=== PATIENT | female | born 1955 | race Caucasian/White ===

== ENCOUNTER 2018-09-26 14:40 | Observation (INO) | payer MEDICARE, MEDICAID ==
--- NOTE | 2018-09-26 15:10 | ER Document Report ---
ED Medical Screen (RME) - General Chief Complaint: Leg Weakness Stated Complaint: FALL/RIGHT LEG WEAKNESS Time Seen by Provider: 09/26/18 14:56 Primary Care Provider: YONI BRITO [Primary Care Provider] - Follow up as needed TRAVEL OUTSIDE OF THE [place] IN LAST 30 DAYS: No - HPI Notes: 09/26/18 15:06 63-year-old female with a past medical history of diabetes type 2, hypertension, right-sided CVA, gastroparesis, hypercholesteremia, gastroparesis on anticoagulant therapy presents to the ED for evaluation of a syncopal event that happened at 11 AM this morning, patient states she felt like her right leg could not hold her up, she started to fall down to the cabinet in which she then became very dizzy and then passed out states she woke up later to her dogs licking her face. Patient reports she is having right arm numbness and tingling that started this morning. Denies any prior history of syncopal events. Patient states this morning when she checked her blood sugar it was 142. She is established with [facility]. Came by private car. ROS: Other than noted above, the 12 point review of systems was reviewed with the patient and were negative, all pertinent findings are included in the HPI. PHYSICAL EXAMINATION: Vital signs reviewed. GENERAL: Well-appearing, well-nourished and in no acute distress. HEAD: Atraumatic, normocephalic. NECK: Normal range of motion CV: Heart regular rate and rhythm LUNGS: No respiratory distress ABD: generalized abd pain Musculoskeletal: Normal range of motion. NEUROLOGICAL: Normal speech. Oriented x3. dysmetria to right upper extremity, right upper extremity drift, face symmetrical, tongue midline. Strength 4 out of 5 in right upper extremity, strength 5 out of 5 in left upper extremity. GCS 15 PSYCH: Normal mood, normal affect. MDM: Patient seen and examined for rapid initial assessment. Vital signs reviewed. A comprehensive ED assessment and evaluation of the patient, analysis of test results and completion of the medical decision making process will be conducted by additional ED providers. *Note is created using voice recognition software and may contain spelling, syntax or grammatical errors. - Related Data Allergies/Adverse Reactions: morphine Allergy (Verified 09/26/18 14:43) Physical Exam - Vital signs Vitals: Temp Pulse Resp BP Pulse Ox 97.7 F 99 14 119/57 L 97 09/26/18 14:45 09/26/18 14:45 09/26/18 14:45 09/26/18 14:45 09/26/18 14:45 Course - Vital Signs Vital signs: Temp Pulse Resp BP Pulse Ox 97.7 F 99 14 119/57 L 97 09/26/18 14:45 09/26/18 14:45 09/26/18 14:45 09/26/18 14:45 09/26/18 14:45 Doctor's Discharge - Discharge Referrals: LOCALMD,NO [Primary Care Provider] - Follow up as needed
--- NOTE | 2018-09-26 15:52 | RADIOLOGY REPORT (SQ) ---
EXAM DESCRIPTION: CT HEAD WITHOUT COMPLETED DATE/TIME: 09/26/2018 3:42 pm REASON FOR STUDY: syncopal event, numbness to R arm, hx cva COMPARISON: None. TECHNIQUE: Axial images acquired through the brain without intravenous contrast. Images reviewed wi th bone, brain and subdural windows. Additional sagittal and coronal reconstructions were generated. Images stored on PACS. All CT scanners at this facility use dose modulation, iterative reconstruction, and/or weight based d osing when appropriate to reduce radiation dose to as low as reasonably achievable (ALARA). [facility]: Dose Right [facility]: CareDose [facility]: Dose Right [facility]: Teradose 4D [facility]: Smart [facility] RADIATION DOSE: CT Rad equipment meets quality standard of care and radiation dose reduction techniq ues were employed. CTDIvol: 53.2 mGy. DLP: 1097 mGy-cm. mGy. LIMITATIONS: None. FINDINGS: VENTRICLES: Normal size and contour. CEREBRUM: No masses. No hemorrhage. No midline shift. No evidence for acute infarction. Normal gra y/white matter differentiation. No areas of low density in the white matter. CEREBELLUM: No masses. No hemorrhage. No alteration of density. No evidence for acute infarction. EXTRAAXIAL SPACES: No fluid collections. No masses. ORBITS AND GLOBE: No intra- or extraconal masses. Normal contour of globe without masses. CALVARIUM: No fracture. PARANASAL SINUSES: No fluid or mucosal thickening. SOFT TISSUES: No mass or hematoma. OTHER: No other significant finding. IMPRESSION: No acute intracranial pathology. EVIDENCE OF ACUTE STROKE: NO. COMMENT: Quality ID # [id number]: Final reports with documentation of one or more dose reduction techniques (e.g., Automated exposure control, adjustment of the mA and/or kV according to patient size, use of iterative reconstruction technique) TECHNICAL DOCUMENTATION: JOB ID: [id number] [facility]- All Rights Reserved Reading location - IP/workstation name: [email or web address]
--- NOTE | 2018-09-26 16:03 | RADIOLOGY REPORT (SQ) ---
EXAM DESCRIPTION: CHEST SINGLE VIEW COMPLETED DATE/TIME: 09/26/2018 3:52 pm REASON FOR STUDY: syncopal event COMPARISON: None. EXAM PARAMETERS: NUMBER OF VIEWS: One view. TECHNIQUE: Single frontal radiographic view of the chest acquired. RADIATION DOSE: NA LIMITATIONS: None. FINDINGS: LUNGS AND PLEURA: No opacities, masses or pneumothorax. No pleural effusion. MEDIASTINUM AND HILAR STRUCTURES: No masses. Contour normal. HEART AND VASCULAR STRUCTURES: Heart normal in size. Normal vasculature. BONES: No acute findings. HARDWARE: None in the chest. OTHER: No other significant finding. IMPRESSION: NO ACUTE RADIOGRAPHIC FINDING IN THE CHEST. TECHNICAL DOCUMENTATION: JOB ID: [id number] [employer]- All Rights Reserved Reading location - IP/workstation name: [email or web address]
[2018-09-26 17:08] LABS: ABSOLUTE BASOPHILS # (AUTO) 0.1 10^3/uL (0.0-0.2); ABSOLUTE EOSINOPHILS # (AUTO) 0.2 10^3/uL (0.0-0.6); ABSOLUTE LYMPHOCYTES (AUTO) 2.4 10^3/uL (0.5-4.7); ABSOLUTE MONOCYTES (AUTO) 0.5 10^3/uL (0.1-1.4); ABSOLUTE NEUT (AUTO) 7.7 10^3/uL (1.7-8.2); BASOPHILS % (AUTO) 0.8 % (0-2); EOSINOPHILS % (AUTO) 1.4 % (0-6); HEMATOCRIT 38.1 % (36.0-47.0); HEMOGLOBIN 12.7 g/dL (12.0-15.5); LYMPHOCYTES % (AUTO) 22.1 % (13-45); MEAN CORPUSCULAR HEMOGLOBIN 27.6 pg (27.0-33.4); MEAN CORPUSCULAR HGB CONC 33.4 g/dL (32.0-36.0); MEAN CORPUSCULAR VOLUME 82 fl (80-97); MONOCYTES % (AUTO) 4.9 % (3-13); PLATELET COUNT 280 10^3/uL (150-450); RED BLOOD COUNT 4.62 10^6/uL (3.72-5.28); RED CELL DISTRIBUTION WIDTH 13.5 % (11.5-14.0); SEGMENTED NEUTROPHILS % (AUTO) 70.8 % (42-78); TOTAL CELLS COUNTED % (AUTO) 100 %; WHITE BLOOD COUNT 10.9 10^3/uL (4.0-10.5)
[2018-09-26 17:27] LABS: ALANINE AMINOTRANSFERASE 22 U/L (9-52); ALKALINE PHOSPHATASE 130 U/L (38-126); ANION GAP 10 (5-19); ASPARTATE AMINO TRANSFERASE 25 U/L (14-36); BILIRUBIN,DIRECT 0.2 mg/dL (0.0-0.4); BILIRUBIN,TOTAL 0.4 mg/dL (0.2-1.3); BLOOD UREA NITROGEN 28 mg/dL (7-20); CALCIUM 9.2 mg/dL (8.4-10.2); CARBON DIOXIDE 30 mmol/L (22-30); CHLORIDE 99 mmol/L (98-107); CREATINE KINASE 81 U/L (30-135); GLUCOSE 205 mg/dL (75-110); POTASSIUM 5.2 mmol/L (3.6-5.0); TOTAL PROTEIN 6.4 g/dL (6.3-8.2)
[2018-09-26 17:35] LABS: APPEARANCE,URINE CLEAR; BILIRUBIN,URINE NEGATIVE (NEGATIVE); COLOR,URINE YELLOW; GLUCOSE, URINE NEGATIVE (NEGATIVE); KETONES,URINE NEGATIVE (NEGATIVE); LEUKOCYTE ESTERASE,URINE NEGATIVE (NEGATIVE); NITRITE,URINE NEGATIVE (NEGATIVE); PROTEIN,URINE NEGATIVE (NEGATIVE); URINE SPECIFIC GRAVITY 1.006; UROBILINOGEN,URINE NEGATIVE mg/dL (<2.0)
[2018-09-26 17:39] LABS: TROPONIN I < 0.012 ng/mL
--- NOTE | 2018-09-26 18:20 | EKG REPORT ---
SEVERITY:- BORDERLINE ECG - SINUS RHYTHM LOW VOLTAGE THROUGHOUT : Confirmed by: Nicole Meredith MD 26-Sep-2018 18:18:51
--- NOTE | 2018-09-26 18:55 | ER Document Report ---
ED Syncope and Near Syncope - General Chief Complaint: Syncope Stated Complaint: FALL/RIGHT LEG WEAKNESS Time Seen by Provider: 09/26/18 14:56 Notes: Patient is a 63-year-old female with a history of type 2 diabetes, hypertension, CVA, gastroparesis, high cholesterol who presents to the emergency department with a chief complaint of "passing out." Patient states this morning she woke up and felt like she was in a fog. Patient states she did check her blood sugar which was 76 and at that time she did eat. Patient states she continued to feel like she was in a fog but continued about her day. Patient stated around 11 AM she was getting something out of her kitchen cabinet when both of her legs gave out on her causing her to fall. Patient states she guided herself to the floor. Patient states that at that time everything went black and she woke up on the floor laying on her left side with the dog licking her face. Patient states that before and after the fall she did not have any chest pain or palpitations although she does report intermittent chest pain with ambulation that is new over the past few days. Patient reports she is on Plavix. Patient denies other blood thinner use. Patient states that she has continued to feel like she has been in a fog throughout the day. Patient reports that she does have a history of left-sided weakness from her previous stroke. Patient states over the past 2 months she has had more right leg weakness. Patient reports she does use for cane regularly. Patient reports nausea without recent vomiting or diarrhea. Patient denies recent cough or cold symptoms. Patient reports that she normally has left-sided numbness to the face but that it appears worse today. TRAVEL OUTSIDE OF THE [place] IN LAST 30 DAYS: No - Related Data Allergies/Adverse Reactions: morphine Allergy (Verified 09/26/18 14:43) Past Medical History - General Information source: Patient - Social History Smoking Status: Unknown if Ever Smoked Frequency of alcohol use: None Drug Abuse: None Lives with: Family Family History: None Patient has suicidal ideation: No Patient has homicidal ideation: No - Past Medical History Cardiac Medical History: Reports: Hx Hypercholesterolemia, Hx Hypertension Pulmonary Medical History: Reports: None EENT Medical History: Reports: None Neurological Medical History: Reports: Hx Cerebrovascular Accident Endocrine Medical History: Reports: Hx Diabetes Mellitus Type 2 Renal/ Medical History: Reports: None. Denies: Hx Peritoneal Dialysis Malignancy Medical History: Reports: None GI Medical History: Reports: Other - Gastropesis Musculoskeletal Medical History: Reports None Skin Medical History: Reports None Psychiatric Medical History: Reports: None Traumatic Medical History: Reports: None Infectious Medical History: Reports: None Review of Systems - Review of Systems Constitutional: See HPI EENT: No symptoms reported Cardiovascular: See HPI Respiratory: No symptoms reported Gastrointestinal: No symptoms reported Genitourinary: No symptoms reported Female Genitourinary: No symptoms reported Musculoskeletal: See HPI Skin: No symptoms reported Hematologic/Lymphatic: No symptoms reported Neurological/Psychological: No symptoms reported Physical Exam - Vital signs Vitals: Temp Pulse Resp BP Pulse Ox 97.7 F 99 14 119/57 L 97 09/26/18 14:45 09/26/18 14:45 09/26/18 14:45 09/26/18 14:45 09/26/18 14:45 Interpretation: Normal - Notes Notes: GENERAL: Well-appearing, well-nourished and in no acute distress. HEAD: Atraumatic, normocephalic. EYES: Pupils equal round and reactive to light, extraocular movements intact, s clera anicteric, conjunctiva are normal. ENT: Nares patent, oropharynx clear without exudates. Moist mucous membranes. NECK: Normal range of motion, supple without lymphadenopathy or JVD. LUNGS: Breath sounds clear to auscultation bilaterally and equal. No wheezes rales or rhonchi. HEART: Regular rate and rhythm without murmurs, rubs or gallops. No reproducible chest pain. ABDOMEN: Soft, obese, nontender, normoactive bowel sounds. No guarding, no rebound. No masses appreciated. BACK: No cervical, thoracic, lumbar midline tenderness. No saddle anesthesia, normal distal neurovascular exam. GENITOURINARY: Deferred. EXTREMITIES: Normal range of motion, no pitting or edema. No clubbing or cyanosis. PSYCH: Normal mood, normal affect. SKIN: Warm, Dry, normal turgor, no rashes or lesions noted. Face symmetric. Tongue protrudes midline. Extraocular motions intact. Pupils are 2 mm and equally reactive. Normal speech. Weak left upper and lower extremities, strong right upper and lower extremities. Sensation is grossly intact throughout. Finger to nose testing normal. Pronator drift normal. Course - Re-evaluation Re-evalutation: 08/01/19 19:[address] did speak with Dr. Benavidez who will admit the patient to [facility]. Patient and family aware of admission status. - Vital Signs Vital signs: Temp Pulse Resp BP Pulse Ox 97.7 F 99 14 119/57 L 97 09/26/18 14:45 09/26/18 14:45 09/26/18 14:45 09/26/18 14:45 09/26/18 14:45 - Laboratory Result Diagrams: 09/26/18 16:52 09/26/18 16:52 Laboratory results interpreted by me: 09/26/18 09/26/18 09/26/18 15:59 16:52 16:52 WBC 10.9 H Potassium 5.2 H BUN 28 H Est GFR ( Amer) 53 L Est GFR (Non-Af Amer) 43 L Glucose 205 H POC Glucose 215 H Hemoglobin A1c % Alkaline Phosphatase 130 H 09/26/18 16:52 WBC Potassium BUN Est GFR ( Amer) Est GFR (Non-Af Amer) Glucose POC Glucose Hemoglobin A1c % 6.9 H Alkaline Phosphatase 09/26/18 18:58 Laboratory 09/26/18 09/26/18 09/26/18 15:59 16:52 16:52 WBC 10.9 H RBC 4.62 Hgb 12.7 Hct 38.1 MCV 82 MCH 27.6 MCHC 33.4 RDW 13.5 Plt Count 280 Seg Neutrophils % 70.8 Lymphocytes % 22.1 Monocytes % 4.9 Eosinophils % 1.4 Basophils % 0.8 Absolute Neutrophils 7.7 Absolute Lymphocytes 2.4 Absolute Monocytes 0.5 Absolute Eosinophils 0.2 Absolute Basophils 0.1 Sodium 138.6 Potassium 5.2 H Chloride 99 Carbon Dioxide 30 Anion Gap 10 BUN 28 H Creatinine 1.24 Est GFR ( Amer) 53 L Est GFR (Non-Af Amer) 43 L Glucose 205 H POC Glucose 215 H Calcium 9.2 Total Bilirubin 0.4 Direct Bilirubin 0.2 Neonat Total Bilirubin Not Reportable Neonat Direct Bilirubin Not Reportable Neonat Indirect Bili Not Reportable AST 25 ALT 22 Alkaline Phosphatase 130 H Creatine Kinase 81 CK-MB (CK-2) Troponin I Total Protein 6.4 Albumin 4.0 Urine Color Urine Appearance Urine pH Ur Specific [place] Urine Protein Urine Glucose (UA) Urine Ketones Urine Blood Urine Nitrite Urine Bilirubin Urine Urobilinogen Ur Leukocyte Esterase Urine WBC (Auto) U Hyaline Cast (Auto) Squamous Epi Cells Auto Urine Mucus (Auto) Urine Ascorbic Acid 09/26/18 09/26/18 16:52 17:01 WBC RBC Hgb Hct MCV MCH MCHC RDW Plt Count Seg Neutrophils % Lymphocytes % Monocytes % Eosinophils % Basophils % Absolute Neutrophils Absolute Lymphocytes Absolute Monocytes Absolute Eosinophils Absolute Basophils Sodium Potassium Chloride Carbon Dioxide Anion Gap BUN Creatinine Est GFR ( Amer) Est GFR (Non-Af Amer) Glucose POC Glucose Calcium Total Bilirubin Direct Bilirubin Neonat Total Bilirubin Neonat Direct Bilirubin Neonat Indirect Bili AST ALT Alkaline Phosphatase Creatine Kinase CK-MB (CK-2) 1.20 Troponin I < 0.012 Total Protein Albumin Urine Color YELLOW Urine Appearance CLEAR Urine pH 7.0 Ur Specific [place] 1.006 Urine Protein NEGATIVE Urine Glucose (UA) NEGATIVE Urine Ketones NEGATIVE Urine Blood NEGATIVE Urine Nitrite NEGATIVE Urine Bilirubin NEGATIVE Urine Urobilinogen NEGATIVE Ur Leukocyte Esterase NEGATIVE Urine WBC (Auto) 0 U Hyaline Cast (Auto) 1 Squamous Epi Cells Auto <1 Urine Mucus (Auto) RARE Urine Ascorbic Acid NEGATIVE - Diagnostic Test Radiology results interpreted by me: 09/26/18 18:58 Chest X-Ray 09/26/18 15:04 IMPRESSION: NO ACUTE RADIOGRAPHIC FINDING IN THE CHEST. Head CT 09/26/18 15:04 IMPRESSION: No acute intracranial pathology. EVIDENCE OF ACUTE STROKE: NO. - EKG Interpretation by Me Additional EKG results interpreted by me: 09/26/18 18:59 Patient's EKG shows a sinus rhythm with a heart rate of 99, AR interval is 164, QT 352 and QTc is 452. Patient has a normal axis deviation without ectopy or ST segment changes in consecutive leads. Discharge - Discharge Clinical Impression: Syncope Qualifiers: Syncope type: unspecified Qualified Code(s): R55 - Syncope and collapse Condition: Stable Disposition: ADMITTED OBSERVATION Admitting Provider: Pramod (Hospitalist) Unit Admitted: [facility]
[2018-09-26] MEDS ORDERED: ACETAMINOPHEN 325 MG TABLET PO PRN (19:15)
[2018-09-26] MEDS ORDERED: DOCUSATE SODIUM 100 MG CAPSULE PO PRN (19:15)
[2018-09-26] MEDS ORDERED: GLUCAGON,HUMAN RECOMB 1 MG INJ IM PRN (19:15)
[2018-09-26] MEDS ORDERED: DEXTROSE 40% GEL 15 GM TUBE PO PRN ×2 (19:15)
[2018-09-26] MEDS ORDERED: DEXTROSE 50%-WATER 25 GM/50 ML DISP.SYRIN IV PRN ×2 (19:15)
[2018-09-26] MEDS ORDERED: MAGNESIUM HYDROXIDE SUSP 30 ML UDCUP PO PRN (19:15)
[2018-09-26] MEDS ORDERED: LACTULOSE SYRUP 20 GM/30 ML UDCUP PO ONE ×2 (20:00→23:15)
[2018-09-26] MEDS ORDERED: LORAZEPAM INJ 2 MG/1 ML VIAL IV ONE (21:56)
[2018-09-26] MEDS: HEPARIN SOD (PORCINE) 5,000 UNIT/ML 1 ML VIAL SUBCUT SCH (23:10)
[2018-09-26] MEDS: ATORVASTATIN CALCIUM 20 MG TABLET PO SCH (23:10)
--- NOTE | 2018-09-27 03:18 | PDOC H&P ---
History of Present Illness Admission Date/PCP: 09/26/18 19:55 JIMMIE ORTIZ MD Patient complains of: Syncope History of Present Illness: LARISA JACKSON is a 63 year old female with a past medical history of insulin dependent diabetes, hypertension, gastroparesis, restless leg, dyslipidemia and CVA with residual left-sided weakness and gait disorder requiring a cane. She presents 6 hours after awakening feeling foggy and lightheaded suspecting her glucose was low she was preparing a sandwich and became weak on the right leg, she awoke on the floor without injury. She noted a glucose of 70, right-sided weakness prompting a call to EMS she was brought to the emergency room for evaluation and had an unremarkable work-up, at baseline and referred to the hospitalist for admission. Patient denies recent change in medication or diet. She otherwise complains of some recent coughing while swallowing but denies chest pain palpitations headache nausea vomiting. Past Medical History Cardiac Medical History: Reports: Hyperlipidema, Hypertension Pulmonary Medical History: Reports: None EENT Medical History: Reports: None Endocrine Medical History: Reports: Diabetes Mellitus Type 2 Renal/ Medical History: Reports: None Malignancy Medical History: Reports: None GI Medical History: Reports: Other - Gastropesis Musculoskeltal Medical History: Reports: None Skin Medical History: Reports: None Psychiatric Medical History: Reports: Depression Denies: Alcohol Dependency, Tobacco Dependency Traumatic Medical History: Reports: None Infectious Medical History: Reports: None Social History Information Source: Patient Lives with: Family Smoking Status: Former Smoker Frequency of Alcohol Use: None Hx Recreational Drug Use: No Drugs: None Hx Prescription Drug Abuse: No - Advance Directive Resuscitation Status: Full Code Family History Family History: Hypertension Parental Family History Reviewed: Yes Children Family History Reviewed: Yes Sibling(s) Family History Reviewed.: Yes Medication/Allergy Home Medications: Atorvastatin Calcium [Lipitor 80 mg Tablet] 80 mg PO QHS 09/26/18 Buspirone HCl [Buspar 10 mg Tablet] 10 mg PO BID 09/26/18 Cholecalciferol (Vitamin D3) [Vitamin D3 2000 unit Tablet] 4,000 unit PO BID 09/26/18 Clopidogrel Bisulfate [Plavix 75 mg Tablet] 75 mg PO DAILY 09/26/18 Doxepin HCl [Sinequan 25 Mg Capsule] 25 mg PO DAILY 09/26/18 Duloxetine HCl [Cymbalta] 60 mg PO BID 09/26/18 Furosemide [Lasix 20 mg Tablet] 20 mg PO BID 09/26/18 Insulin Aspart [Novolog Flexpen] 0 unit SUBCUT .SLD SCALE 09/26/18 Insulin Glargine,Hum.rec.anlog [Basaglar Kwikpen U-100] 40 unit SQ QHS 09/26/18 Levothyroxine Sodium [Synthroid 0.025 mg Tablet] 0.025 mg PO DAILY 09/26/18 Lisinopril [Prinivil 40 mg Tablet] 40 mg PO DAILY 09/26/18 Multivit-Min/Iron/Folic/Lutein [Centrum Silver Women Tablet] 1 tab PO DAILY 09/26/18 Pramipexole Di-HCl [Mirapex 0.25 Mg Tablet] 0.25 mg PO QHS 09/26/18 Trazodone HCl [Desyrel] 200 mg PO QHS 09/26/18 Allergies/Adverse Reactions: morphine Allergy (Verified 09/26/18 14:43) Review of Systems Constitutional: PRESENT: as per HPI, fatigue, weakness. ABSENT: headache(s), night sweats, weight gain, weight loss Eyes: ABSENT: visual disturbances Ears: ABSENT: hearing changes Cardiovascular: ABSENT: chest pain, dyspnea on exertion, edema, orthropnea, palpitations Respiratory: ABSENT: cough, hemoptysis Gastrointestinal: PRESENT: bloating, constipation. ABSENT: abdominal pain, diarrhea, hematemesis, hematochezia, nausea, vomiting Genitourinary: ABSENT: dysuria, hematuria Musculoskeletal: PRESENT: as per HPI, muscle weakness. ABSENT: joint swelling Integumentary: ABSENT: rash, wounds Neurological: PRESENT: as per HPI, paresthesias, restless legs, syncope, weakness. ABSENT: abnormal gait, abnormal speech, confusion, dizziness, focal weakness Psychiatric: ABSENT: anxiety, depression, homidical ideation, suicidal ideation Endocrine: PRESENT: as per HPI, polyphagia, polyuria Hematologic/Lymphatic: ABSENT: easy bleeding, easy bruising Physical Exam Vital Signs: Temp Pulse Resp BP Pulse Ox 98 F 86 19 131/64 H 95 09/27/18 01:37 09/27/18 01:37 09/27/18 01:37 09/27/18 01:37 09/27/18 01:37 Intake & Output 09/25/18 09/26/18 09/27/18 11:59 11:59 11:59 Weight 101.6 kg General appearance: PRESENT: no acute distress, cooperative, morbidly obese. ABSENT: mild distress Head exam: PRESENT: atraumatic, normocephalic Eye exam: PRESENT: conjunctiva pink, EOMI, PERRLA. ABSENT: scleral icterus Ear exam: PRESENT: normal external ear exam Mouth exam: PRESENT: moist, tongue midline Neck exam: ABSENT: carotid bruit, JVD, lymphadenopathy, thyromegaly Respiratory exam: PRESENT: clear to auscultation jael. ABSENT: rales, rhonchi, wheezes Cardiovascular exam: PRESENT: RRR. ABSENT: diastolic murmur, rubs, systolic mur mur Pulses: PRESENT: normal dorsalis pedis pul Vascular exam: PRESENT: normal capillary refill GI/Abdominal exam: PRESENT: normal bowel sounds, soft. ABSENT: distended, guarding, mass, organolmegaly, rebound, tenderness Rectal exam: PRESENT: deferred Extremities exam: PRESENT: full ROM. ABSENT: calf tenderness, clubbing, pedal edema Neurological exam: PRESENT: alert, awake, oriented to person, oriented to place, oriented to time, oriented to situation, CN II-XII grossly intact. ABSENT: motor sensory deficit Psychiatric exam: PRESENT: appropriate affect, normal mood. ABSENT: homicidal ideation, suicidal ideation Skin exam: PRESENT: dry, intact, warm. ABSENT: cyanosis, rash Results Laboratory Results: 09/26/18 16:52 09/26/18 16:52 09/26/18 09/26/18 09/26/18 16:52 16:52 16:52 WBC 10.9 H RBC 4.62 Hgb 12.7 Hct 38.1 MCV 82 MCH 27.6 MCHC 33.4 RDW 13.5 Plt Count 280 Seg Neutrophils % 70.8 Lymphocytes % 22.1 Monocytes % 4.9 Eosinophils % 1.4 Basophils % 0.8 Absolute Neutrophils 7.7 Absolute Lymphocytes 2.4 Absolute Monocytes 0.5 Absolute Eosinophils 0.2 Absolute Basophils 0.1 Sodium 138.6 Potassium 5.2 H Chloride 99 Carbon Dioxide 30 Anion Gap 10 BUN 28 H Creatinine 1.24 Est GFR ( Amer) 53 L Est GFR (Non-Af Amer) 43 L Glucose 205 H Calcium 9.2 Total Bilirubin 0.4 AST 25 ALT 22 Alkaline Phosphatase 130 H Total Protein 6.4 Albumin 4.0 TSH 2.41 Urine Color Urine Appearance Urine pH Ur Specific [place] Urine Protein Urine Glucose (UA) Urine Ketones Urine Blood Urine Nitrite Ur Leukocyte Esterase Urine WBC (Auto) 09/26/18 17:01 WBC RBC Hgb Hct MCV MCH MCHC RDW Plt Count Seg Neutrophils % Lymphocytes % Monocytes % Eosinophils % Basophils % Absolute Neutrophils Absolute Lymphocytes Absolute Monocytes Absolute Eosinophils Absolute Basophils Sodium Potassium Chloride Carbon Dioxide Anion Gap BUN Creatinine Est GFR ( Amer) Est GFR (Non-Af Amer) Glucose Calcium Total Bilirubin AST ALT Alkaline Phosphatase Total Protein Albumin TSH Urine Color YELLOW Urine Appearance CLEAR Urine pH 7.0 Ur Specific [place] 1.006 Urine Protein NEGATIVE Urine Glucose (UA) NEGATIVE Urine Ketones NEGATIVE Urine Blood NEGATIVE Urine Nitrite NEGATIVE Ur Leukocyte Esterase NEGATIVE Urine WBC (Auto) 0 09/26/18 09/26/18 09/26/18 16:52 16:52 16:52 Creatine Kinase 81 CK-MB (CK-2) 1.20 Troponin I < 0.012 NT-Pro-B Natriuret Pep 83 09/26/18 21:05 Creatine Kinase CK-MB (CK-2) Troponin I < 0.012 NT-Pro-B Natriuret Pep Impressions: Chest X-Ray 09/26/18 15:04 IMPRESSION: NO ACUTE RADIOGRAPHIC FINDING IN THE CHEST. Head CT 09/26/18 15:04 IMPRESSION: No acute intracranial pathology. EVIDENCE OF ACUTE STROKE: NO. Assessment and Plan - Diagnosis (1) TIA (transient ischemic attack) Is this a current diagnosis for this admission?: Yes Plan: Severe [place], follow-up MRI head, 2D echo, lipid profile and TSH (2) Diabetes Is this a current diagnosis for this admission?: Yes Plan: Half dose Lantus, Humalog sliding scale while n.p.o. follow-up A1c (4) Dysphasia Is this a current diagnosis for this admission?: Yes Plan: Unclear if residual from primary CVA versus acute deficit, follow-up modified barium swallow, speech therapy consult (5) Gait disorder Is this a current diagnosis for this admission?: Yes Plan: Follow-up physical therapy consult (6) Syncope Qualifiers: Syncope type: unspecified Qualified Code(s): R55 - Syncope and collapse Is this a current diagnosis for this admission?: Yes Plan: Unclear if secondary to acute TIA versus hypoglycemia versus orthostatic hypotension, follow-up ordered work-up. (7) Hyperkalemia Is this a current diagnosis for this admission?: Yes Plan: Without peak T waves, likely secondary to constipation, lactulose ordered follow-up chemistry - Time Time Spent with patient: 35 or more minutes - Inpatient Certification Medical Necessity: Need Close Monitoring Due to Risk of Patient Decompensation
[2018-09-27 04:05] LABS: ANION GAP 5 (5-19); BLOOD UREA NITROGEN 23 mg/dL (7-20); CARBON DIOXIDE 31 mmol/L (22-30); CHLORIDE 105 mmol/L (98-107); CHOLESTEROL 136.41 mg/dL (0-200); GLUCOSE 143 mg/dL (75-110); POTASSIUM 4.6 mmol/L (3.6-5.0); TRIGLYCERIDES 128 mg/dL (<150)
[2018-09-27 04:16] LABS: DIRECT LDL 99 mg/dL (<100)
[2018-09-27] MEDS: HEPARIN SOD (PORCINE) 5,000 UNIT/ML 1 ML VIAL SUBCUT SCH ×3 (06:05→21:58)
[2018-09-27] MEDS: INSULIN LISPRO 100 UNIT/ML 3 ML VIAL SUBCUT SCH ×3 (06:06→19:53)
--- NOTE | 2018-09-27 09:44 | RADIOLOGY REPORT (SQ) ---
EXAM DESCRIPTION: CAROTID DOPPLER COMPLETED DATE/TIME: 09/26/2018 9:49 pm REASON FOR STUDY: cva COMPARISON: None. TECHNIQUE: Grayscale ultrasound, Doppler velocity and spectra, and color Doppler images acquired of the extra-cranial carotid and vertebral arteries. Images stored on PACS. LIMITATIONS: None. FINDINGS: RIGHT CAROTID CCA Velocities: Within normal limits. ICA Velocities Peak systolic 0.86 m/s. End diastolic 0.32 m/s. Proximal ICA/CCA peak systolic ratio 1.4. Spectra normal. No significant plaque. LEFT CAROTID CCA Velocities: Within normal limits. ICA Velocities Peak systolic 0.97 m/s. End diastolic 0.31 m/s. Proximal ICA/CCA peak systolic ratio 0.8. Soft plaque VERTEBRAL ARTERIES: Antegrade flow. Normal waveforms. SUBCLAVIAN ARTERIES: No finding. OTHER: Soft plaque IMPRESSION: NO HEMODYNAMICALLY SIGNIFICANT STENOSIS. COMMENT: Quality ID #[id number]: Velocity criteria are extrapolated from the diameter data as defined by t kuldip Society of Radiologists in Ultrasound Consensus Conference. Radiology 2003: 229; 340-346. TECHNICAL DOCUMENTATION: JOB ID: [id number] [employer]- All Rights Reserved Reading location - IP/workstation name: [email or web address]
--- NOTE | 2018-09-27 11:12 | RADIOLOGY REPORT (SQ) ---
EXAM DESCRIPTION: MRI HEAD WITHOUT COMPLETED DATE/TIME: 09/26/2018 10:42 pm REASON FOR STUDY: cva syncope COMPARISON: None. TECHNIQUE: Multiplanar imaging includes non-contrasted T1, T2, FLAIR, and diffusion with ADC map seq uences. Images stored on PACS. LIMITATIONS: None. FINDINGS: ANATOMY: No anomalies. Normal vascular flow voids. Pituitary fossa normal. CSF SPACES: Normal in size and contour. No hemorrhage. CEREBRUM: Sulci and gyri normal in size and contour. Normal white matter signal on FLAIR imaging. No evidence of hemorrhage, mass, or extraaxial fluid collection. POSTERIOR FOSSA: No signal alteration. No hemorrhage. No edema, masses or mass effect. Internal roger tory canals, cerebello-pontine angles, mastoids normal. DIFFUSION IMAGING: Negative for acute or sub-acute infarction. ORBITS: No masses. Globes normal. PARANASAL SINUSES: No fluid levels. Mucosa normal. OTHER: No other significant finding. IMPRESSION: NORMAL MRI OF THE BRAIN WITHOUT INTRAVENOUS GADOLINIUM CONTRAST. EVIDENCE OF ACUTE STROKE: NO. TECHNICAL DOCUMENTATION: JOB ID: [id number] [employer]- All Rights Reserved Reading location - IP/workstation name: [email or web address]
--- NOTE | 2018-09-27 11:12 | RADIOLOGY REPORT (SQ) ---
EXAM DESCRIPTION: SHABNAM SWALLOW COMPLETED DATE/TIME: 09/27/2018 9:52 am REASON FOR STUDY: Dysphasia history of stroke. COMPARISON: None. TECHNIQUE: Videofluoroscopic swallowing examination was performed in conjunction with speech patholo gy. Videofluoroscopic imaging was obtained and reviewed and these are the findings: RADIATION DOSE: Fluoro time 1.45 minutes 1 images saved to PACS. LIMITATIONS: None FINDINGS: The patient was brought into the fluoro room and placed upright on a modified barium swall ow chair. The patient was then given multiple consistencies mixed with barium to swallow under live fluoroscopic video guidance. According to the Speech Pathologist there was no penetration or aspirat ion. Please refer to the speech pathology report for further details. IMPRESSION: NO EVIDENCE OF PENETRATION OR ASPIRATION. PLEASE SEE SPEECH PATHOLOGIST REPORT FOR OTHER FINDINGS AND RECOMMENDATIONS. COMMENT: None Quality ID [id number]: Final reports for procedures using fluoroscopy that document radiation exposure amanda yeimi, or exposure time and number of fluorographic images (if radiation exposure indices are not avail able) TECHNICAL DOCUMENTATION: JOB ID: [id number] [employer]- All Rights Reserved Reading location - IP/workstation name: [email or web address]
--- NOTE | 2018-09-27 13:32 | ST Inp Modified Barium Swallow ---
Medical Diagnosis - Medical Diagnoses Medical Diagnosis Description & ICD-10 Code(s): TIA and Dysphagia - ICD-10 Tx Diagnosis Coding (1) Oropharyngeal dysphagia ICD-10 Code(s): R13.12 - DYSPHAGIA, OROPHARYNGEAL PHASE (2) Dysphasia ICD-10 Code(s): R47.02 - DYSPHASIA ST [place] [facility] [place] Date: 09/27/18 - History History Obtained From: Patient - Per Patient: Patient usually having coughing mostly at night and during the day when she is exceptionally tired. Coughing occurs on liquids and solids. -: Medical - Per EMR: Patient presents with diagnosis of TIA and Dysphagia. Past medical history significant for insulin dependent diabetes, hypertension, gastroparesis, and CVA with residual left-sided weakness. Cranial nerves are grossly intact for CN II-XII. Chest X-Ray revealed no abnormalities/opacities. Head CT revealed no acute intracranial pathology. No previous MBSS. 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 Per nurse: difficulty with liquids last night, leading to inability to finish drink Medications: Medications Reviewed - yes - Subjective Current Nutritional Means: NPO Current PO Diet: N/A (NPO) Current Symptoms: Coughing Pain: no signs/symptoms of pain - Objective Assessment: Upright - Food Trials Food Trials Used: Thin liquids, Pureed, Regular The Patient: Was Able to Self Feed, via cup, via straw - Assessment Labial Function: Within Functional Limits Lingual Function: Within Functional Limits Mandibular Function: Within Functional Limits Dentition: Partial - Dentures top, edentulous on bottom. Despite missing dentition patient had adequate mastication/manipulation of bolus allowing for timely posterior propulsion., Dentures-Upper Velo-Pharyngeal Function: Unremarkable Laryngeal Function: clear voicing - Pharyngeal Stage Initiation of Pharyngeal Stage: Normal Decreased Laryngeal Elevation: No Reduced Velo-Pharyngeal Closure: no Reduced Tongue Base Retraction: No Pre-Swallowing Pooling in Valleculae: None Pre-Swallowing Pooling in Pyriforms: None Reduced Thyro-Hyiod Approximation: No Reduced Epiglottic Excursion: No Reduced Pharyngeal Peristalsis: No Multiple Swallows With: Effective Post Swallow Residuals in Valleculae: Mild - only for regular solids Post Swallow Residuals in Pyriforms: Mild - Residuals in vallecula, but put was able to clear with consecutive swallows Pahryngeal Stage Comments: Pt had efficient and timely pharyngeal phase as evidenced by airway protection, no aspiration/penetration, adequate epiglottis inversion, laryngeal mobility, and pharyngeal propulsion throughout challenging with consistencies. Mild amount of residue noted for regular solids, but were cleared with spontaneous consecutive swallows. Patient did cough with solids x1 and thin liquid x2 with straw sips, but without observed airway compromise. Recommend regular solids and thin liquids with aspiration precautions (no straws, eating when sitiing upright/alert, small bites/sips). No speech therapy follow up indicated, please reconsult in the event of acute changes. - Esophageal Stage Cricophageal Function: Normal Upper Esophageal Transit: Normal - Impression/Summary Laryngeal Penetration: No Tracheal Aspiration: no Compensatory Strategies: Multiple swallows noted to reduce mild residue with solids. Patient Presents With: Normal swallow at eval - Normal swallow for all consistencies tested. No aspiration/penetration observed despite challenging, Pa chang did cough x2 with straw sips and x1 with cup sip during exam without evidence airway compromise. Risk of Aspiration: Mild Risk of Nutritional Compromise: None - Recommendations NPO: no Solid Diet Recommendations: Regular Liquid Diet Recommendations: Thin Regular Diet: Yes Strict Aspitarion Precautions: Yes - Given history of CVA Dysphagia Therapy with RN ALLERGY: No - no speech therapy services indicated, please reconsult in the event of acute changes Recommended Techniques: Fully Upright During Meal, Small Bites and Sips Supervision: Independent Other Recommendations: no straws - Time Total Time: 27 Total Timed Minutes: 27
--- NOTE | 2018-09-27 13:43 | PDOC PROGRESS REPORT ---
Subjective Progress Note for:: 09/27/18 Subjective:: This is a 63 year old female with a past medical history of insulin dependent diabetes, hypertension, gastroparesis, restless leg, dyslipidemia and CVA with residual left-sided weakness and gait disorder who presented with lightheadedness and right-sided weakness. This symptoms were associated however with a low glucose in the 70s. No acute event overnight. Upon encounter, she appears comfortable and denies acute complaints. She says she has recovered her strength in the right arm. Reason For Visit: CVA SYNCOPE DIABETES Physical Exam Vital Signs: Temp Pulse Resp BP Pulse Ox 98.3 F 82 17 132/63 H 96 09/27/18 07:34 09/27/18 08:00 09/27/18 08:00 09/27/18 08:00 09/27/18 08:00 Intake & Output 09/26/18 09/27/18 09/28/18 06:59 06:59 06:59 Weight 223 lb 1.725 oz General appearance: PRESENT: no acute distress, well-developed, well-nourished Head exam: PRESENT: atraumatic, normocephalic Eye exam: PRESENT: conjunctiva pink, EOMI, PERRLA. ABSENT: scleral icterus Ear exam: PRESENT: normal external ear exam Mouth exam: PRESENT: moist, tongue midline Neck exam: ABSENT: carotid bruit, JVD, lymphadenopathy, thyromegaly Respiratory exam: PRESENT: clear to auscultation jael. ABSENT: rales, rhonchi, wheezes Cardiovascular exam: PRESENT: RRR. ABSENT: diastolic murmur, rubs, systolic murmur Pulses: PRESENT: normal dorsalis pedis pul GI/Abdominal exam: PRESENT: normal bowel sounds, soft. ABSENT: distended, guarding, mass, organolmegaly, rebound, tenderness Rectal exam: PRESENT: deferred Neurological exam: PRESENT: alert, awake, oriented to person, oriented to place, oriented to time, oriented to situation, CN II-XII grossly intact, motor sensory deficit - MICROBIOLOGY COORDINATOR 3/5 Results Laboratory Results: 09/26/18 16:52 09/27/18 03:34 09/26/18 09/26/18 09/26/18 16:52 16:52 16:52 WBC 10.9 H RBC 4.62 Hgb 12.7 Hct 38.1 MCV 82 MCH 27.6 MCHC 33.4 RDW 13.5 Plt Count 280 Seg Neutrophils % 70.8 Lymphocytes % 22.1 Monocytes % 4.9 Eosinophils % 1.4 Basophils % 0.8 Absolute Neutrophils 7.7 Absolute Lymphocytes 2.4 Absolute Monocytes 0.5 Absolute Eosinophils 0.2 Absolute Basophils 0.1 Sodium 138.6 Potassium 5.2 H Chloride 99 Carbon Dioxide 30 Anion Gap 10 BUN 28 H Creatinine 1.24 Est GFR ( Amer) 53 L Est GFR (Non-Af Amer) 43 L Glucose 205 H Calcium 9.2 Total Bilirubin 0.4 AST 25 ALT 22 Alkaline Phosphatase 130 H Total Protein 6.4 Albumin 4.0 Triglycerides Cholesterol LDL Cholesterol Direct VLDL Cholesterol HDL Cholesterol TSH 2.41 Urine Color Urine Appearance Urine pH Ur Specific Center Urine Protein Urine Glucose (UA) Urine Ketones Urine Blood Urine Nitrite Ur Leukocyte Esterase Urine WBC (Auto) 09/26/18 09/27/18 17:01 03:34 WBC RBC Hgb Hct MCV MCH MCHC RDW Plt Count Seg Neutrophils % Lymphocytes % Monocytes % Eosinophils % Basophils % Absolute Neutrophils Absolute Lymphocytes Absolute Monocytes Absolute Eosinophils Absolute Basophils Sodium 141.3 Potassium 4.6 Chloride 105 Carbon Dioxide 31 H Anion Gap 5 BUN 23 H Creatinine 1.14 Est GFR ( Amer) 58 L Est GFR (Non-Af Amer) 48 L Glucose 143 H Calcium 9.0 Total Bilirubin AST ALT Alkaline Phosphatase Total Protein Albumin Triglycerides 128 Cholesterol 136.41 LDL Cholesterol Direct 99 VLDL Cholesterol 26.0 HDL Cholesterol 35 L TSH Urine Color YELLOW Urine Appearance CLEAR Urine pH 7.0 Ur Specific Center 1.006 Urine Protein NEGATIVE Urine Glucose (UA) NEGATIVE Urine Ketones NEGATIVE Urine Blood NEGATIVE Urine Nitrite NEGATIVE Ur Leukocyte Esterase NEGATIVE Urine WBC (Auto) 0 09/26/18 09/26/18 09/26/18 16:52 16:52 16:52 Creatine Kinase 81 CK-MB (CK-2) 1.20 Troponin I < 0.012 NT-Pro-B Natriuret Pep 83 09/26/18 09/27/18 09/27/18 21:05 03:34 09:16 Creatine Kinase CK-MB (CK-2) Troponin I < 0.012 < 0.012 < 0.012 NT-Pro-B Natriuret Pep Impressions: Head MRI 09/26/18 00:00 IMPRESSION: NORMAL MRI OF THE BRAIN WITHOUT INTRAVENOUS GADOLINIUM CONTRAST. EVIDENCE OF ACUTE STROKE: NO. Chest X-Ray 09/26/18 15:04 IMPRESSION: NO ACUTE RADIOGRAPHIC FINDING IN THE CHEST. Head CT 09/26/18 15:04 IMPRESSION: No acute intracranial pathology. EVIDENCE OF ACUTE STROKE: NO. Carotid Doppler Study 09/26/18 19:17 IMPRESSION: NO HEMODYNAMICALLY SIGNIFICANT STENOSIS. Modified Barium Swallow 09/27/18 00:00 IMPRESSION: NO EVIDENCE OF PENETRATION OR ASPIRATION. PLEASE SEE SPEECH PATHOLOGIST REPORT FOR OTHER FINDINGS AND RECOMMENDATIONS. Assessment and Plan - Diagnosis (1) Right sided weakness Is this a current diagnosis for this admission?: Yes Plan: Resolved. Questionable if this is from a TIA or related to her hypoglycemia at home. MRI of the brain has been negative. Carotid Dopplers were negative. (2) TIA (transient ischemic attack) Is this a current diagnosis for this admission?: Yes Plan: MRI of the brain normal. Continue Plavix, aspirin and statin. (3) Diabetes mellitus Is this a current diagnosis for this admission?: Yes Plan: Lantus has been decreased to 50% of her home dose due to her hypoglycemia. We will continue to monitor blood sugars over the past. - Time Time Spent with patient: 25-34 minutes
[2018-09-27] MEDS ORDERED: NORMAL SALINE 1000 ML 1,000 ML IV PRN (13:54)
--- NOTE | 2018-09-27 14:27 | XCELERA REPORT ---
[address] [address] Transthoracic Echocardiogram Report Name: LARISA JACKSON Age: 63 yrs Gender: Female : 1955 Patient Status: Inpatient Patient Location: [place] [id number]^A Study Date: 09/26/2018 07:29 PM Height: 62 in Weight: 226 lb BSA: 2.0 m2 Procedure: A two-dimensional transthoracic echocardiogram with color flow and Doppler was performed. Study Quality: Poor. The study was technically difficult with many images being suboptimal in quality. Images were not obtained from all of the standard acoustic windows due to the limited scope of the study. Reason For Study: systolic murmur History: systolic murmur. Ordering Physician: ANGELINE EATON Performed By: Kell Chester Interpretation Summary The left ventricle is grossly normal size. There is normal left ventricular wall thickness. No True apical 2 chamber views obtained.Hence cannot comment on the apical anterior , the basal anterior, the basal inferior and apical inferior betancourt.The mid anterior , the mid inferior and the rest of the LV betancourt contract normally. .LVEF is normal and is greater than 65% in the limited views. Doppler measurements suggest impaired left ventricular relaxation, which is associated with grade I/IV or mild diastolic dysfunction Not a good study to assess for ASD,VSD,or PFO. The right ventricle is not well visualized secondary to technical limitations Right atrium not well visualized secondary to technical limitations The left atrium is mildly dilated. There is no evidence of mitral valve prolapse. There is no mitral valve stenosis. There is a trace amount of mitral regurgitation There is no aortic valvular vegetation. There is aortic sclerosis without aortic stenosis. There is no LVOT obstruction. No aortic regurgitation is present. There is no tricuspid stenosis. There is a trace to mild amount of tricuspid regurgitation There is mild pulmonary hypertension by echo RVSP is 36 mm of Hg , with RA mean of 10. The pulmonic valve is not well visualized. The aortic root is not well visualized. The inferior vena cava was not well visualized There is no pericardial effusion. MMode/2D Measurements & Calculations RVDd: 2.5 cm LVIDd: 3.9 cm FS: 33.4 % Ao root diam: 2.9 cm IVSd: 1.1 cm LVIDs: 2.6 cm EDV(Teich): 64.1 ml Ao root area: 6.5 cm2 LVPWd: 0.96 cm ESV(Teich): 23.8 ml LA dimension: 4.2 cm EF(Teich): 62.8 % Doppler Measurements & Calculations MV E max iman: MV P1/2t max iman: Ao V2 max: LV V1 max P.1 cm/sec 74.0 cm/sec 147.4 cm/sec 7.8 mmHg MV A max iman: MV P1/2t: 53.1 msec Ao max P.7 mmHgLV V1 max: 92.8 cm/sec MVA(P1/2t): 4.1 cm2 139.7 cm/sec MV E/A: 0.77 MV dec slope: 408.2 cm/sec2 MV dec time: 0.18 sec PA V2 max: TR max iman: MV P1/2t-pr_phl: 112.7 cm/sec 253.8 cm/sec 53.1 msec PA max P.1 mmHgTR max P.8 mmHg Left Ventricle The left ventricle is grossly normal size. There is normal left ventricular wall thickness. No True apical 2 chamber views obtained.Hence cannot comment on the apical anterior , the basal anterior, the basal inferior and apical inferior betacnourt.The mid anterior , the mid inferior and the rest of the LV betancourt contract normally. .LVEF is normal and is greater than 65% in the limited views. Doppler measurements suggest impaired left ventricular relaxation, which is associated with grade I/IV or mild diastolic dysfunction. Not a good study to assess for ASD,VSD,or PFO. Right Ventricle The right ventricle is not well visualized secondary to technical limitations. Atria Right atrium not well visualized secondary to technical limitations. The left atrium is mildly dilated. Mitral Valve There is no evidence of mitral valve prolapse. There is no mitral valve stenosis. There is a trace amount of mitral regurgitation. Aortic Valve There is no aortic valvular vegetation. There is aortic sclerosis without aortic stenosis. There is no LVOT obstruction. No aortic regurgitation is present. Tricuspid Valve There is no tricuspid stenosis. There is a trace to mild amount of tricuspid regurgitation. There is mild pulmonary hypertension by echo. RVSP is 36 mm of Hg , with RA mean of 10. Pulmonic Valve The pulmonic valve is not well visualized. Great Vessels The aortic root is not well visualized. The inferior vena cava was not well visualized. Effusions There is no pericardial effusion. : ANGELINE EATON > Nicole Meredith
[2018-09-27] MEDS: BUSPIRONE HCL 10 MG TABLET PO SCH ×2 (15:24→19:13)
[2018-09-27] MEDS: CHOLECALCIFEROL (D3) 1,000 UNIT (25 MCG) TABLET PO SCH ×2 (15:24→19:15)
[2018-09-27] MEDS: DULOXETINE HCL 30 MG CAPSULE.DR PO SCH ×2 (15:24→19:14)
[2018-09-27] MEDS: ASPIRIN 81 MG TABLET, ENT COATED PO SCH (15:24)
[2018-09-27] MEDS: CLOPIDOGREL BISULFATE 75 MG TABLET PO SCH (15:24)
[2018-09-27] MEDS: ONDANSETRON HCL INJ/PF 4 MG/2 ML SDV IV PRN (19:54)
[2018-09-27] MEDS: ATORVASTATIN CALCIUM 20 MG TABLET PO SCH (21:58)
[2018-09-27] MEDS ORDERED: INSULIN GLARGINE,HUM.REC.ANLOG 1,000 UNIT/10 ML VIAL SUBCUT SCH (22:00)
[2018-09-27] MEDS ORDERED: TRAZODONE HCL 50 MG TABLET PO SCH (22:00)
[2018-09-28] MEDS: INSULIN LISPRO 100 UNIT/ML 3 ML VIAL SUBCUT SCH ×2 (01:19→05:45)
[2018-09-28] MEDS: ONDANSETRON HCL INJ/PF 4 MG/2 ML SDV IV PRN (03:37)
[2018-09-28] MEDS: HEPARIN SOD (PORCINE) 5,000 UNIT/ML 1 ML VIAL SUBCUT SCH (06:37)
[2018-09-28 08:02] VITALS: BP 122/34
[2018-09-28] MEDS: CHOLECALCIFEROL (D3) 1,000 UNIT (25 MCG) TABLET PO SCH (09:45)
[2018-09-28] MEDS: DULOXETINE HCL 30 MG CAPSULE.DR PO SCH (09:45)
[2018-09-28] MEDS: BUSPIRONE HCL 10 MG TABLET PO SCH (09:45)
[2018-09-28] MEDS: CLOPIDOGREL BISULFATE 75 MG TABLET PO SCH (09:45)
[2018-09-28] MEDS: ASPIRIN 81 MG TABLET, ENT COATED PO SCH (09:45)
--- NOTE | 2018-09-28 17:10 | PDOC DISCHARGE SUMMARY ---
General - Admit/Disc Date/PCP Admission Date/Primary Care Provider: 09/26/18 19:55 JIMMIE ORTIZ MD Discharge Date: 09/28/18 - Discharge Diagnosis (1) Right sided weakness Is this a current diagnosis for this admission?: Yes (2) TIA (transient ischemic attack) Is this a current diagnosis for this admission?: Yes (3) Diabetes mellitus Is this a current diagnosis for this admission?: Yes - Additional Information Resuscitation Status: Full Code Discharge Diet: Cardiac, Diabetic Discharge Activity: Activity As Tolerated, Balance Activity w/Rest Home Medications: Atorvastatin Calcium [Lipitor 80 mg Tablet] 80 mg PO QHS 09/26/18 Buspirone HCl [Buspar 10 mg Tablet] 10 mg PO BID 09/26/18 Cholecalciferol (Vitamin D3) [Vitamin D3 2000 unit Tablet] 4,000 unit PO BID 09/26/18 Clopidogrel Bisulfate [Plavix 75 mg Tablet] 75 mg PO DAILY 09/26/18 Doxepin HCl [Sinequan 25 mg Capsule] 25 mg PO DAILY 09/26/18 Duloxetine HCl [Cymbalta] 60 mg PO BID 09/26/18 Furosemide [Lasix 20 mg Tablet] 20 mg PO BID 09/26/18 Insulin Aspart [Novolog Flexpen] 0 unit SUBCUT .SLD SCALE 09/26/18 Levothyroxine Sodium [Synthroid 0.025 mg Tablet] 0.025 mg PO DAILY 09/26/18 Lisinopril [Prinivil 40 mg Tablet] 40 mg PO DAILY 09/26/18 Multivit-Min/Iron/Folic/Lutein [Centrum Silver Women Tablet] 1 tab PO DAILY 09/26/18 Pramipexole Di-HCl [Mirapex 0.25 mg Tablet] 0.25 mg PO QHS 09/26/18 Trazodone HCl [Desyrel] 200 mg PO QHS 09/26/18 Insulin Glargine,Hum.rec.anlog [Basaglar Kwikpen U-100] 15 unit SQ QHS #0 09/28/18 History of Present Illness History of Present Illness: Admitting hospitalist's H&P: LARISA JACKSON is a 63 year old female with a past medical history of insulin dependent diabetes, hypertension, gastroparesis, restless leg, dyslipidemia and CVA with residual left-sided weakness and gait disorder requiring a cane. She presents 6 hours after awakening feeling foggy and lightheaded suspecting her glucose was low she was preparing a sandwich and became weak on the right leg, she awoke on the floor without injury. She noted a glucose of 70, right-sided weakness prompting a call to EMS she was brought to the emergency room for evaluation and had an unremarkable work-up, at baseline and referred to the hospitalist for admission. Patient denies recent change in medication or diet. She otherwise complains of some recent coughing while swallowing but denies chest pain palpitations headache nausea vomiting. Hospital Course Hospital Course: This is a 63 year old female with a past medical history of insulin dependent diabetes, hypertension, gastroparesis, restless leg, dyslipidemia and CVA with residual left-sided weakness and gait disorder who presented with lightheadedness and right-sided weakness. This symptoms were associated however with a low glucose in the 70s. Who weakness promptly resolved. Questionable if this is from a TIA or related to her hypoglycemia at home as she does have chronic left-sided weakness as well.. MRI of the brain has been negative. Carotid Dopplers were negative. She was continued on Plavix, aspirin and statin. Her hemoglobin A1c did come back at 6.9. Her Lantus was decreased to 50% of her home dose on admission. This was further decreased to 15 units at bedtime upon discharge. She will continue to follow-up with her PCP and continue to monitor her blood sugars at home. Physical Exam Vital Signs: Temp Pulse Resp BP Pulse Ox 97.6 F 75 20 122/34 L 93 09/28/18 08:51 09/28/18 08:51 09/28/18 08:51 09/28/18 08:51 09/28/18 08:51 Intake & Output 09/27/18 09/28/18 09/29/18 06:59 06:59 06:59 Intake Total 100 1000 Balance 100 1000 Weight 223 lb 1.725 oz 221 lb 1.978 oz General appearance: PRESENT: no acute distress, well-developed, well-nourished Head exam: PRESENT: atraumatic, normocephalic Eye exam: PRESENT: conjunctiva pink, EOMI, PERRLA. ABSENT: scleral icterus Ear exam: PRESENT: normal external ear exam Mouth exam: PRESENT: moist, tongue midline Neck exam: ABSENT: carotid bruit, JVD, lymphadenopathy, thyromegaly Respiratory exam: PRESENT: clear to auscultation jael. ABSENT: rales, rhonchi, wheezes Cardiovascular exam: PRESENT: RRR. ABSENT: diastolic murmur, rubs, systolic murmur Pulses: PRESENT: normal dorsalis pedis pul GI/Abdominal exam: PRESENT: normal bowel sounds, soft. ABSENT: distended, guarding, mass, organolmegaly, rebound, tenderness Rectal exam: PRESENT: deferred Neurological exam: PRESENT: alert, awake, oriented to person, oriented to place, oriented to time, oriented to situation, CN II-XII grossly intact. ABSENT: motor sensory deficit Results Laboratory Results: 09/26/18 16:52 09/27/18 03:34 09/26/18 09/26/18 09/26/18 16:52 16:52 16:52 Creatine Kinase 81 CK-MB (CK-2) 1.20 Troponin I < 0.012 NT-Pro-B Natriuret Pep 83 09/26/18 09/27/18 09/27/18 21:05 03:34 09:16 Creatine Kinase CK-MB (CK-2) Troponin I < 0.012 < 0.012 < 0.012 NT-Pro-B Natriuret Pep Impressions: Head MRI 09/26/18 00:00 IMPRESSION: NORMAL MRI OF THE BRAIN WITHOUT INTRAVENOUS GADOLINIUM CONTRAST. EVIDENCE OF ACUTE STROKE: NO. Chest X-Ray 09/26/18 15:04 IMPRESSION: NO ACUTE RADIOGRAPHIC FINDING IN THE CHEST. Head CT 09/26/18 15:04 IMPRESSION: No acute intracranial pathology. EVIDENCE OF ACUTE STROKE: NO. Carotid Doppler Study 09/26/18 19:17 IMPRESSION: NO HEMODYNAMICALLY SIGNIFICANT STENOSIS. Modified Barium Swallow 09/27/18 00:00 IMPRESSION: NO EVIDENCE OF PENETRATION OR ASPIRATION. PLEASE SEE SPEECH PATHOLOGIST REPORT FOR OTHER FINDINGS AND RECOMMENDATIONS. Qualifiers - * PATIENT BEING DISCHARGED WITH ANY OF THE FOLLOWING DIAGNOSIS: No Acute Heart Failure - Is this a Heart Failure Patient?: No LVEF < 40%?: No- if no continue to question #3
== END 2018-09-28 09:20 | disposition home or self-care (01) ==
LOC: ER 14:40 → EH 19:55 → 3N 09-27 01:30
PROVIDERS: ADMIT Internal Medicine; ATTEND Internal Medicine
DX: R53.1 Weakness (principal); G45.9 Transient cerebral ischemic attack, unspecified; E11.649 Type 2 diabetes mellitus with hypoglycemia without coma; G25.81 Restless legs syndrome; E66.01 Morbid (severe) obesity due to excess calories; R13.12 Dysphagia, oropharyngeal phase; R26.9 Unspecified abnormalities of gait and mobility; E87.5 Hyperkalemia; I69.354 Hemiplegia and hemiparesis following cerebral infarction affecting left non-dominant side; R05 Cough; E11.43 Type 2 diabetes mellitus with diabetic autonomic (poly)neuropathy; K31.84 Gastroparesis; E78.5 Hyperlipidemia, unspecified; K59.00 Constipation, unspecified; R20.0 Anesthesia of skin; Z79.899 Other long term (current) drug therapy; Z79.4 Long term (current) use of insulin; Z82.49 Family history of ischemic heart disease and other diseases of the circulatory system; Z87.891 Personal history of nicotine dependence
CPT/HCPCS: 93005; 99285; 36415 ×2; 82553; 82962 ×3; 82550; 84443; 85025; 80048; 80053; 81001; 84484 ×2; 83036; 80061; 83880; 93306; 93880; 70551; 71045; 74230; 70450; 93010; 97116; 97161; 92611; G0378 ×4; J1644 ×3; A9270 ×7; J3490 ×3; J2405 ×2; J7030

== ENCOUNTER → 2018-11-26 | Outpatient (CLI) | payer MEDICARE, MEDICAID ==
--- NOTE | 2018-11-26 12:24 | RADIOLOGY REPORT (SQ) ---
EXAM DESCRIPTION: NM GASTRIC EMPTYING STUDY COMPLETED DATE/TIME: 11/26/2018 11:50 am REASON FOR STUDY: EPIGASTRIC PAIN (R10.13) R10.13 EPIGASTRIC PAIN COMPARISON: None. RADIONUCLIDE AND DOSE: 2 millicuries Tc-99m Sulfur Colloid. A wide variety of solid foods have been used. The route of agent administration: Oral. TECHNIQUE: 1 minute serial static imaging performed at time of meal, 1 hour, 2 hours, 3 hours, and 4 hours as needed. Once stomach reaches 90% emptying, the test is complete. Image intensity values pl otted with respect to time with linear regression algorithm. LIMITATIONS: None. FINDINGS: Patient was observed for 4 hours. Immediate post meal serves as baseline. Gastric emptying at 30 minutes was 26.2%. Gastric emptying at 60 minutes was 45.6% Gastric emptying at 90 minutes was 59.8%. Gastric emptying at 120 minutes was 70.4%. Gastric emptying at 240 minutes was 91.2%. Normal values: 60 minutes: 30-90% retained. If less than 30%, abnormally rapid emptying. If greater than 90%, delaye d gastric emptying. 120 minutes: <60% retained. If greater than 60%, delayed gastric emptying. 240 minutes: <10% retained. If greater than 10%, delayed gastric emptying. IMPRESSION: NORMAL GASTRIC EMPTYING. TECHNICAL DOCUMENTATION: JOB ID: [id number] [employer]- All Rights Reserved rev-07/13 Reading location - IP/workstation name: [email or web address]
== END ==
LOC: RAD 06:16
PROVIDERS: ATTEND Internal Medicine Gastroenterology
DX: R10.13 Epigastric pain (principal)
CPT/HCPCS: 78264; A9541

== ENCOUNTER → 2019-08-18 | Outpatient (CLI) | payer MEDICARE, MEDICAID ==
--- NOTE | 2019-08-18 14:36 | RADIOLOGY REPORT (SQ) ---
EXAM DESCRIPTION: CERV SP 4 OR 5 VIEWS IMAGES COMPLETED DATE/TIME: 08/18/2019 1:58 pm REASON FOR STUDY: M54.2 CERVICALGIA M54.2 CERVICALGIA M54.40 LUMBAGO WITH SCIATICA, UNSPECIFIED SI DE COMPARISON: None. NUMBER OF VIEWS: Five views. TECHNIQUE: AP, lateral, obliques and odontoid radiographic images acquired of the cervical spine. LIMITATIONS: None. FINDINGS: MINERALIZATION: Normal. ALIGNMENT: Anatomic. VERTEBRAE: Vertebral bodies of normal height. DISCS: Disc narrowing from C4-C7, most prominently at C6-7. Marginal osteophytes. FORAMINA: Mild bilateral foraminal narrowing at C6-7. LATERAL AND POSTERIOR ELEMENTS: Facets, lateral masses and spinous processes without significant find ings. HARDWARE: None in the spine. SOFT TISSUES: No masses or calcifications. Lung apices clear. OTHER: No other significant finding. IMPRESSION: Degenerative disc disease and spondylosis. TECHNICAL DOCUMENTATION: JOB ID: [id number] 2010 [email or web address]- All Rights Reserved Reading location - IP/workstation name: [email or web address]
--- NOTE | 2019-08-18 14:43 | RADIOLOGY REPORT (SQ) ---
EXAM DESCRIPTION: L SPINE WHOLE IMAGES COMPLETED DATE/TIME: 08/18/2019 1:58 pm REASON FOR STUDY: M54.40 LUMBAGO WITH SCIATICA, UNSPECIFIED SIDE M54.2 CERVICALGIA M54.40 LUMBAGO WITH SCIATICA, UNSPECIFIED SIDE COMPARISON: None. NUMBER OF VIEWS: Five views including obliques. TECHNIQUE: AP, lateral, oblique, and sacral radiographic images acquired of the lumbar spine. LIMITATIONS: None. FINDINGS: MINERALIZATION: Normal. SEGMENTATION: Normal. No transitional anatomy. ALIGNMENT: Normal. VERTEBRAE: Maintained height. No fracture or worrisome bone lesion. DISCS: There is mild disc narrowing at L4-5 and L5-S1. POSTERIOR ELEMENTS: Mild hypertrophic facet changes from L4-S1. HARDWARE: None in the spine. PARASPINAL SOFT TISSUES: Normal. PELVIS: Intact as visualized. No fractures or worrisome bone lesions. SI joints intact. OTHER: No other significant finding. IMPRESSION: Degenerative disc disease. Facet arthropathy. TECHNICAL DOCUMENTATION: JOB ID: [id number] 2010 [employer]- All Rights Reserved Reading location - IP/workstation name: [email or web address]
== END ==
LOC: RAD 13:05
PROVIDERS: ATTEND Internal Medicine
DX: M54.2 Cervicalgia (principal); M51.16 Intervertebral disc disorders with radiculopathy, lumbar region; M47.896 Other spondylosis, lumbar region
CPT/HCPCS: 72050; 72110

== ENCOUNTER → 2019-11-11 | Outpatient (CLI) | payer MEDICARE, MEDICAID ==
--- NOTE | 2019-11-11 13:48 | RADIOLOGY REPORT (SQ) ---
EXAM DESCRIPTION: SHOULDER RIGHT 2 OR MORE VIEWS IMAGES COMPLETED DATE/TIME: 11/11/2019 1:04 pm REASON FOR STUDY: M24.611 ANKYLOSIS, RIGHT SHOULDER M24.611 ANKYLOSIS, RIGHT SHOULDER COMPARISON: None. NUMBER OF VIEWS: Three views. TECHNIQUE: Internal rotation, external rotation, and Y view images acquired of the right shoulder. LIMITATIONS: None. FINDINGS: MINERALIZATION: Normal. BONES: No acute fracture. No worrisome bone lesions. JOINTS: No dislocation. VISUALIZED LUNGS AND RIBS: No pneumothorax. No rib fracture. SOFT TISSUES: No radiopaque foreign body. OTHER: No other significant finding. IMPRESSION: NEGATIVE STUDY OF THE RIGHT SHOULDER. NO RADIOGRAPHIC EVIDENCE OF ACUTE INJURY. TECHNICAL DOCUMENTATION: JOB ID: [id number] 2010 [email or web address]- All Rights Reserved Reading location - IP/workstation name: [email or web address]
== END ==
LOC: RAD 12:50
PROVIDERS: ATTEND Internal Medicine
DX: M24.611 Ankylosis, right shoulder (principal)

== ENCOUNTER 2019-11-13 06:29 | Day surgery (SDC) | payer MEDICARE, MEDICAID ==
[~2019-11-13 06:29] MED LIST: KETOROLAC TROMETHAMINE 0.45% 4 DROP/0.4 ML DROPERETTE OD PRN
[2019-11-13] MEDS: TROPICAMIDE 1% OPH SOLN 15 ML OD PRN ×3 (06:40→07:00)
[2019-11-13] MEDS: CYCLOPENTOLATE 0.2%/PHENYLEPHRINE 1% OPH SOLN 2 ML OD PRN ×3 (06:40→07:00)
[2019-11-13] MEDS: TETRACAINE HCL 0.5% OPH SOLN 4 ML OD PRN ×2 (06:40→07:40)
[2019-11-13] MEDS: BESIFLOXACIN HCL 0.6% OPH SUSP 5 ML BOTTLE OD PRN ×4 (06:40→08:01)
[2019-11-13] MEDS ORDERED: ONDANSETRON HCL INJ/PF 4 MG/2 ML SDV ONE (07:04)
[2019-11-13] MEDS ORDERED: MIDAZOLAM 2 MG/2 ML INJ ONE (07:04)
[2019-11-13] MEDS ORDERED: FENTANYL CITRATE INJ/PF 100 MCG/2 ML AMPUL ONE (07:04)
[2019-11-13] MEDS ORDERED: EPINEPHRINE INJ/PF 1 MG/1 ML AMPULE ONE (07:17)
[2019-11-13] MEDS ORDERED: CHONDR SU A NA/HYALUR INTRAOC KIT (SURGICARE) ONE (07:18)
[2019-11-13] MEDS ORDERED: LIDOCAINE 1%/PHENYLEPHRINE 1.5% 0.8 ML SYRINGE ONE (07:18)
[2019-11-13] MEDS: DORZOLAMIDE HCL 2%/TIMOLOL MALEAT 0.5% OPH SOLN 10 ML OD PRN ×2 (08:01)
[2019-11-13] MEDS: PREDNISOLONE ACETATE 1% OPH SUSP 5 ML OD PRN ×2 (08:01)
--- NOTE | 2019-11-13 13:37 | Operative Report ---
Operative Report-[facility] Operative Report: DATE OF SURGERY: 11/13/2019 PREOPERATIVE DIAGNOSIS: Cataract, right eye POSTOPERATIVE DIAGNOSIS: Cataract, right eye OPERATION: Cataract extraction with insertion of an IOL of the right eye. Intraocular Lens Model: [22.5 diopter SN 60 WF] Underwent surgery for difficulty seeing to drive at night SURGEON: Wes Duque MD ANESTHESIA: Topical PROCEDURE: After obtaining appropriate consent, the patient's right eye was prepped and draped in a sterile fashion as well as the surgeon in the sterile manner and cataract surgery was started. First a paracentesis blade was used to make a side-port incision. Viscoelastic was used to inflate the anterior chamber. Next a 2.4 mm incision was made with a 2.4 mm blade, clear corneal temporarily. A continuous capsulorrhexis was made using a cystotome and Utrata forceps. Following this hydrodissection was carried out to make the melonie fully loose and mobile and it was rotated. Following this, a divide and conquer technique was used to phacoemulsify the melonie. The remaining cortex was removed with an irrigation/aspiration. Provisc was instilled into the capsular bag to inflate the bag. The intraocular lens was placed. The remaining viscoelastic material was removed with irrigation/aspiration. Following this, the incision was found to be watertight. Besivance and Cosopt was instilled into the eye and a protective shield was placed over the eye. The patient was reurned to the postoperative recovery in a stable condition.
== END 2019-11-13 08:39 | disposition home or self-care (01) ==
LOC: SC 06:29
PROVIDERS: ATTEND Internal Medicine
DX: H25.811 Combined forms of age-related cataract, right eye (principal); H57.03 Miosis; H40.033 Anatomical narrow angle, bilateral; H40.013 Open angle with borderline findings, low risk, bilateral; D31.31 Benign neoplasm of right choroid; H04.123 Dry eye syndrome of bilateral lacrimal glands; H01.002 Unspecified blepharitis right lower eyelid; H01.005 Unspecified blepharitis left lower eyelid; H52.4 Presbyopia; H35.89 Other specified retinal disorders; E78.00 Pure hypercholesterolemia, unspecified; Z86.73 Personal history of transient ischemic attack (TIA), and cerebral infarction without residual deficits; M19.90 Unspecified osteoarthritis, unspecified site; E03.9 Hypothyroidism, unspecified; M79.7 Fibromyalgia; F41.8 Other specified anxiety disorders; Z87.891 Personal history of nicotine dependence; D86.9 Sarcoidosis, unspecified; E11.40 Type 2 diabetes mellitus with diabetic neuropathy, unspecified; E11.22 Type 2 diabetes mellitus with diabetic chronic kidney disease; I12.9 Hypertensive chronic kidney disease with stage 1 through stage 4 chronic kidney disease, or unspecified chronic kidney disease; N18.3 Chronic kidney disease, stage 3 (moderate); Z79.4 Long term (current) use of insulin; Z79.82 Long term (current) use of aspirin; M10.9 Gout, unspecified; I25.10 Atherosclerotic heart disease of native coronary artery without angina pectoris; Z83.511 Family history of glaucoma; Z83.518 Family history of other specified eye disorder
CPT/HCPCS: 66984; 82962; V2632; J2250; J3490 ×3; A9270; J0171; J3010; J2405; 142

== ENCOUNTER 2019-12-04 10:42 | Day surgery (SDC) | payer MEDICARE, MEDICAID ==
[~2019-12-04 10:42] MED LIST changes: +CHONDR SU A NA/HYALUR INTRAOC KIT (SURGICARE) ONE; +DORZOLAMIDE HCL 2%/TIMOLOL MALEAT 0.5% OPH SOLN 10 ML OS PRN; +EPINEPHRINE INJ/PF 1 MG/1 ML AMPULE ONE; +FENTANYL CITRATE INJ/PF 100 MCG/2 ML AMPUL ONE; -KETOROLAC TROMETHAMINE 0.45% 4 DROP/0.4 ML DROPERETTE OD PRN; +KETOROLAC TROMETHAMINE 0.45% 4 DROP/0.4 ML DROPERETTE OS PRN; +LIDOCAINE 1%/PHENYLEPHRINE 1.5% 1 ML VIAL ONE; +MIDAZOLAM 2 MG/2 ML INJ ONE; +PREDNISOLONE ACETATE 1% OPH SUSP 5 ML OS PRN
[2019-12-04] MEDS: TETRACAINE HCL 0.5% OPH SOLN 4 ML OS PRN ×3 (11:19→11:59)
[2019-12-04] MEDS: CYCLOPENTOLATE 0.2%/PHENYLEPHRINE 1% OPH SOLN 2 ML OS PRN ×3 (11:20→11:41)
[2019-12-04] MEDS: BESIFLOXACIN HCL 0.6% OPH SUSP 5 ML BOTTLE OS PRN ×3 (11:20→12:09)
[2019-12-04] MEDS: TROPICAMIDE 1% OPH SOLN 15 ML OS PRN ×3 (11:20→11:41)
[2019-12-04] MEDS ORDERED: INSULIN REG, HUMAN 100 UNIT/ML 3 ML VIAL (PYX) ONE (11:49)
[2019-12-04] MEDS ORDERED: LIDOCAINE 2% INJ-PF (20 MG/ML) 10 ML AMPUL ONE (12:17)
[2019-12-04] MEDS ORDERED: TOBRAMYCIN SULFATE/DEXAMETH OPH OINTMENT 3.5 GM ONE (12:17)
[2019-12-04] MEDS ORDERED: BUPIVACAINE HCL 0.75% INJ/PF (7.5 MG/1 ML) 10 ML SDV ONE (12:17)
[2019-12-04] MEDS ORDERED: HYALURONIDASE INJ 150 UNIT/1 ML VIAL ONE (12:18)
[2019-12-04] MEDS ORDERED: CHONDR SU A NA/HYALUR SOD 0.5 ML DISP.SYRIN ONE (12:22)
--- NOTE | 2019-12-04 13:05 | Operative Report ---
Operative Report-[facility] Operative Report: DATE OF SURGERY: 12/04/2019 PREOPERATIVE DIAGNOSIS: Cataracts, left eye POSTOPERATIVE DIAGNOSIS: Cataract, left eye OPERATION: Cataract extraction with insertion of an IOL of the left eye. Intraocular Lens Model: [22.5 diopter SN 60 WF lens] She underwent surgery for difficulty seeing words on the television SURGEON: Wes Duque MD ANESTHESIA: Topical PROCEDURE: After obtaining appropriate consent, the patient's left eye was prepped and draped in a sterile fashion as well as the surgeon in the sterile manner and cataract surgery was started. First a paracentesis blade was used to make a side-port incision. Viscoelastic was used to inflate the anterior chamber. Next a 2.4 mm incision was made with a 2.4 mm blade, clear corneal temporarily. A continuous capsulorrhexis was made using a cystotome and Utrata forceps. Following this hydrodissection was carried out to make the lens fully loose and mobile and it was rotated 90 degrees. Following this, a divide and conquer technique was used to phacoemulsify the lens. The remaining cortex was removed with an irrigation/aspiration. Provisc was instilled into the capsular bag to inflate the bag.The intraocular lens was placed. The remaining viscoelastic material was removed with irrigation/aspiration. Following this, the incision was found to be watertight. Besivance and Cosopt was instilled into the eye and a protective shield was placed over the eye. The patient was returned to the postoperative recovery in a stable condition.
== END 2019-12-04 13:04 | disposition home or self-care (01) ==
LOC: SC 10:42
PROVIDERS: ATTEND Internal Medicine
DX: H25.812 Combined forms of age-related cataract, left eye (principal); H57.03 Miosis; Z96.1 Presence of intraocular lens; E11.36 Type 2 diabetes mellitus with diabetic cataract; Z79.4 Long term (current) use of insulin; E78.00 Pure hypercholesterolemia, unspecified; Z86.73 Personal history of transient ischemic attack (TIA), and cerebral infarction without residual deficits; M19.90 Unspecified osteoarthritis, unspecified site; E11.40 Type 2 diabetes mellitus with diabetic neuropathy, unspecified; D86.9 Sarcoidosis, unspecified; M79.7 Fibromyalgia; M10.9 Gout, unspecified; F32.9 Major depressive disorder, single episode, unspecified; F41.9 Anxiety disorder, unspecified; E55.9 Vitamin D deficiency, unspecified; I25.10 Atherosclerotic heart disease of native coronary artery without angina pectoris; E11.22 Type 2 diabetes mellitus with diabetic chronic kidney disease; I12.9 Hypertensive chronic kidney disease with stage 1 through stage 4 chronic kidney disease, or unspecified chronic kidney disease; N18.30 Chronic kidney disease, stage 3 unspecified
CPT/HCPCS: 66984; 82962; 00142; V2632; J2250; J3490 ×5; A9270 ×2; J0171; J3010; J3470; 142; J1815